=== PATIENT | female | born 1980 | race Caucasian/White ===

== ENCOUNTER 2022-07-31 13:28 | Outpatient (CLI) | payer BC, SELFPAY ==
[2022-07-31 21:30] LABS: Albumin* 4.4 g/dL (3.3-5.0)
[2022-07-31 21:31] LABS: Chloride* 107 mmol/L (96-114); Potassium* 3.8 mmol/L (3.6-5.1); Sodium* 139 mmol/L (135-149)
[2022-07-31 21:33] LABS: Bilirubin Total* 0.3 mg/dL (0.1-1.5); Carbon Dioxide* 26 mmol/L (20-32); Cholesterol* 199 mg/dL (90-199); Creatinine* 0.8 mg/dL (0.5-1.5); Estimated Glomerular Filt Rate 95 ml/min; Total Protein* 6.8 g/dL (6.0-8.3)
[2022-07-31 21:34] LABS: Alanine Aminotransferase* 15 U/L (4-35); Alkaline Phosphatase* 37 U/L (40-150); Aspartate Amino Transferase* 21 U/L (12-35); Blood Urea Nitrogen* 18 mg/dL (5-24); Glucose* 96 mg/dL (60-115); HDL Cholesterol* 83 mg/dL (>=50); LDL Cholesterol Calculated 103 mg/dL (<100); Triglycerides* 64 mg/dL (40-149)
[2022-07-31 23:25] LABS: Chlamydia DNA Amplified* NOT DETECTED (No Detected); GC DNA Amplified* NOT DETECTED (No Detected)
== END 2022-07-31 13:29 | disposition home or self-care (01) ==
PROVIDERS: PCP Physician Assistant Medical; Visit Provider Physician Assistant Medical
DX: Z00.00 Encounter for general adult medical examination without abnormal findings (principal); R79.89 Other specified abnormal findings of blood chemistry; R10.9 Unspecified abdominal pain; Z13.6 Encounter for screening for cardiovascular disorders
CPT/HCPCS: 80053; 80061; 87491; 87591

== ENCOUNTER 2022-08-13 14:46 | Outpatient (CLI) | payer BC, SELFPAY ==
--- NOTE | 2022-08-13 15:00 | CRLHL7_ITS ---
For Patients: As a result of the Century Cures Act, medical imaging exams and procedure reports are released immediately into your electronic medical record. You may view this report before your referring provider. If you have questions, please contact your health care provider. INDICATION: Abdominal pain. IUD. Follow-up cyst. TECHNIQUE: Transabdominal and transvaginal pelvic ultrasound. Grayscale images acquired. Doppler evaluation was not performed. FINDINGS: The uterus measures 8.8 x 4.7 x 6.5 cm. The intrauterine device is within normal limits. The endometrium does not appear to be thickened. There is no myometrial mass. No free fluid in the cul-de-sac. The right ovary measures 5.2 x 2.7 x 3.2 cm. Small right follicular cyst. The left ovary measures 2.6 x 1.2 x 2.0 cm. Blood flow is documented in the ovaries. No cystic or solid ovarian masses. IMPRESSION: 1. Normal-appearing uterus with an intrauterine device appropriately positioned. 2. The ovaries are normal in overall size and appearance. Dictated by Herbert Muse MD @ 08/13/2022 6:12:17 PM (Electronically Signed)
--- NOTE | 2022-08-13 16:00 | CRLHL7_ITS ---
For Patients: As a result of the Century Cures Act, medical imaging exams and procedure reports are released immediately into your electronic medical record. You may view this report before your referring provider. If you have questions, please contact your health care provider. INDICATION: Abdominal pain. TECHNIQUE: Right upper quadrant ultrasound. FINDINGS: Normal pancreas, liver, gallbladder, and right kidney. The gallbladder wall measures 2 mm. The common bile duct measures 3 mm. No intrahepatic mass. No intrahepatic biliary ductal dilatation. No right upper quadrant ascites. The right kidney measures 11.2 x 3.9 x 5.2 cm. The abdominal aorta is of normal caliber measuring 2.1 cm in AP dimension proximally, 1.8 cm along its mid course, and 1.7 cm distally. IMPRESSION: Normal right upper quadrant ultrasound. Dictated by Herbert Muse MD @ 08/13/2022 6:08:50 PM (Electronically Signed)
== END 2022-08-13 14:47 | disposition home or self-care (01) ==
LOC: US 14:47
PROVIDERS: PCP Physician Assistant Medical; Visit Provider Physician Assistant Medical
DX: R10.9 Unspecified abdominal pain (principal)
CPT/HCPCS: 76705; 76830; 76856

== ENCOUNTER 2023-06-03 11:13 | Outpatient (CLI) | payer BC, SELFPAY ==
--- NOTE | 2023-06-03 11:30 | CRLHL7_ITS ---
For Patients: As a result of the Cures Act, medical imaging exams and procedure reports are released immediately into your electronic medical record. You may view this report before your referring provider. If you have questions, please contact your health care provider. BILATERAL SCREENING MAMMOGRAM WITH COMPUTER-AIDED DETECTION AND TOMOSYNTHESIS TECHNIQUE: CC and MLO views were obtained. These mammographic images have been obtained using full-field digital technique. These mammographic images were interpreted with the benefit of computer-aided detection. Breast Tomosynthesis was used in this interpretation. COMPARISON FILM: Baseline. FINDINGS: The breasts are heterogeneously dense, which may obscure small masses IMPRESSION: There is no radiographic evidence for malignancy. ASSESSMENT: BI-RADS Category 1: Negative RECOMMENDATION: Routine screening mammogram in 1 year. A lay language report of this examination will be provided to the patient. BLANCA VENTURA M.D. Diagnostic/Nuclear Medicine Radiologist [email or web address] NISHA:zenobia Transcribed: 8:33 [email or web address]/Dictated by: Blanca Ventura MD @ 06/03/2023 11:57:00 AM (Electronically Signed)
== END 2023-06-03 11:14 | disposition home or self-care (01) ==
LOC: MAMMO 11:14
PROVIDERS: PCP Physician Assistant Medical; Visit Provider Physician Assistant Medical
DX: Z12.31 Encounter for screening mammogram for malignant neoplasm of breast (principal); R92.2 Inconclusive mammogram
CPT/HCPCS: 77063; 77067

== ENCOUNTER 2023-09-25 10:35 | Outpatient (CLI) | payer BC, SELFPAY | END 2023-09-25 10:36 | disposition home or self-care (01) | LOC: NFLDREF 09-26 05:49 | PROVIDERS: PCP Physician Assistant Medical; Referring Provider Physician Assistant Medical; Visit Provider Physician Assistant | DX: Z13.220 Encounter for screening for lipoid disorders (principal); Z13.1 Encounter for screening for diabetes mellitus | CPT/HCPCS: 80061; 82947 ==

== ENCOUNTER 2024-02-20 12:15 | Outpatient (CLI) | payer BC, SELFPAY | END 2024-02-20 12:16 | disposition home or self-care (01) | PROVIDERS: PCP Physician Assistant Medical; Visit Provider Family Medicine | DX: R00.0 Tachycardia, unspecified (principal); Z13.29 Encounter for screening for other suspected endocrine disorder | CPT/HCPCS: 80048; 84443 ==

== ENCOUNTER 2024-06-15 09:02 | Outpatient (CLI) | payer BC, SELFPAY ==
--- NOTE | 2024-06-15 09:15 | CRLHL7_ITS ---
For Patients: As a result of the Century Cures Act, medical imaging exams and procedure reports are released immediately into your electronic medical record. You may view this report before your referring provider. If you have questions, please contact your health care provider. BILATERAL SCREENING MAMMOGRAM WITH COMPUTER-AIDED DETECTION AND TOMOSYNTHESIS TECHNIQUE: CC and MLO views were obtained. These mammographic images have been obtained using full-field digital technique. These mammographic images were interpreted with the benefit of computer-aided detection. Breast Tomosynthesis was used in this interpretation. COMPARISON FILM: 06/03/23. FINDINGS: The breasts are heterogeneously dense, which may obscure small masses IMPRESSION: There is no radiographic evidence for malignancy. ASSESSMENT: BI-RADS Category 1: Negative RECOMMENDATION: Routine screening mammogram in 1 year. A lay language report of this examination will be provided to the patient. Moshe Mora M.D. Diagnostic Radiologist [email or web address] CEDRIC/trina / bM/Dictated by: Moshe Mora MD @ 06/15/2024 9:39:00 AM (Electronically Signed)
== END 2024-06-15 09:03 | disposition home or self-care (01) ==
LOC: MAMMO 09:03
PROVIDERS: PCP Physician Assistant Medical; Visit Provider Physician Assistant Medical
DX: Z12.31 Encounter for screening mammogram for malignant neoplasm of breast (principal); R92.333 Mammographic heterogeneous density, bilateral breasts
CPT/HCPCS: 77063; 77067